=== PATIENT | male | born 1990 | race African-American/Black ===

== ENCOUNTER → 2017-04-25 | Outpatient (CLI) | payer MEDICARE ==
--- NOTE | 2017-04-25 13:52 | Diagnostic Imaging Report ---
This report includes an Addendum and supersedes previous reports for this exam. PROCEDURE: C-SPINE COMPLETE COMPARISON: None. INDICATIONS: NECK PAIN FINDINGS: 5 views of the cervical spine (AP, lateral, bilateral obliques, and odontoid view). C1 through C7 are visualized on the lateral view. The spine is in anatomic alignment without evidence of fracture or subluxation. Vertebral body heights are maintained. There are multilevel degenerative changes with severe disc space narrowing at C5-C6 and anterior osteophytes at C3 and C4. The prevertebral soft tissues are thickened, measuring up to 1.0 cm at the level of C3. Tubular gas density structure anterior to the cervicothoracic junction probably represents air within the esophagus. CONCLUSION: Thickening of the prevertebral soft tissues. This could represent prevertebral hematoma or abscess. Recommend CT of the neck soft tissues. Multilevel degenerative changes of the cervical spine, out of proportion to what is expected for patient of this age. Findings were discussed with Dr. Booker at 2:05 pm on 04/25/2017. The patient does not have clinical symptoms suggestive of a prevertebral abscess or hematoma. Dictated by: Phuc Chacon M.D. on 04/25/2017 at 14:00 Electronically approved by: Phuc Chacon M.D. on 04/25/2017 at 14:00 ADDENDUM: Dictated by: Phuc Chacon M.D. on 04/25/2017 at 14:06 Electronically approved by: Phuc Chacon M.D. on 04/25/2017 at 14:06
--- NOTE | 2017-04-25 14:02 | Diagnostic Imaging Report ---
PROCEDURE:TIBIA-FIBULA BILATERAL TECHNIQUE:2 views each of the right and left tibia/fibula (AP and lateral). INDICATION:Leg pain COMPARISON:None. FINDINGS: There is no acute fracture or dislocation. No aggressive lytic or blastic lesions. Joint spaces are maintained. Soft tissues are normal. CONCLUSION: No acute radiographic abnormality of the right or left tibia/fibula Dictated by: Phuc Chacon M.D. on 04/25/2017 at 14:10 Electronically approved by: Phuc Chacon M.D. on 04/25/2017 at 14:10
== END ==
LOC: RAD 12:26
DX: M54.2 Cervicalgia (principal); M79.605 Pain in left leg; M79.604 Pain in right leg
CPT/HCPCS: 72050

== ENCOUNTER → 2017-05-03 | Outpatient (CLI) | payer MEDICARE ==
[~2017-05-03] MED LIST: IOPAMIDOL 370 MG/ML 200 ML INFUS..BTL INJ ONE; SODIUM CHLORIDE 0.9% 50ML 50 ML ONE
--- NOTE | 2017-05-03 12:26 | Diagnostic Imaging Report ---
Examination:CT SOFT TISSUE NECK WITH CONTRAST History: Neck pain. Possible abscess. Comparison studies: None Technique: Axial images from the skull base to the thoracic inlet Coronal and sagittal reformatted images. Intravenous contrast: 100mL of Omnipaque 300. Findings: Soft tissues: No abnormalities. Aerodigestive tract: There is enlargement of the bilateral palatine tonsils which contact each other in the midline resulting in focal moderate narrowing of the oropharyngeal airway. No associated abscess. There is enlargement of the adenoids up to the posterior choana and without discrete mass. The enlargement results in nasopharyngeal airway obstruction. There is prominence of the lingual tonsils with effacement of the valleculae. Lymph nodes: No radiographically significant adenopathy. Vessels: Arteries and veins are patent. Thyroid gland: Normal in size and homogeneous. Submandibular glands: Normal in size and homogeneous. Parotid glands: Normal in size and homogeneous. Orbits: No abnormalities. Paranasal sinuses: Clear. Temporal bones: Soft tissue in the bilateral external auditory canals (left greater than right) with complete obstruction on the left. Skull base and facial bones: Intact. Cervical spine: Partial fusion of the C5 and C6 vertebrae with near complete fusion of the posterior elements. Central disc protrusion at C3-C4 without canal stenosis. No disc bulge or herniation or foraminal or canal stenosis. IMPRESSION: 1. 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 2. No abscess. 3. 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 Michelle Dill M.D. on 05/03/2017 12:22 PM
== END ==
LOC: CT 09:01
DX: M54.2 Cervicalgia (principal)
CPT/HCPCS: 70491; Q9967

== ENCOUNTER → 2024-05-18 | Outpatient (RCR) | payer MEDICARE ==
[~2024-05-18] MED LIST changes: -IOPAMIDOL 370 MG/ML 200 ML INFUS..BTL INJ ONE; +ONDANSETRON ODT4 MG PO; +ONDANSETRON ODT8 MG PO; -SODIUM CHLORIDE 0.9% 50ML 50 ML ONE
== END ==
LOC: PT 05-11 08:30
PROVIDERS: ATTEND Family Medicine Adult Medicine
DX: M79.641 Pain in right hand (principal); R26.89 Other abnormalities of gait and mobility

== ENCOUNTER → 2024-06-18 | Outpatient (RCR) | payer MEDICARE | LOC: PT 05-21 07:28 → OT 06-04 09:00 → PT 06-04 10:00 → OT 06-11 13:31 → PT 10:19 | PROVIDERS: ATTEND Family Medicine Adult Medicine | DX: M79.641 Pain in right hand (principal); Z74.09 Other reduced mobility; R26.89 Other abnormalities of gait and mobility | CPT/HCPCS: 97110 ×5; 97112 ×2; 97165; 97535 ×2; L3702; L3906 ==

== ENCOUNTER 2024-07-02 10:00 | Outpatient (RCR) | payer MEDICARE | END 2024-07-18 | LOC: PT 10:00 | PROVIDERS: ATTEND Family Medicine Adult Medicine | DX: M79.641 Pain in right hand (principal); R26.89 Other abnormalities of gait and mobility ==